=== PATIENT | female | born 1955 | race Caucasian/White ===

== ENCOUNTER 2017-08-04 12:55 | Emergency (ER) | payer MEDICARE, MEDICAID ==
[~2017-08-04] VITALS: Ht 165.1 cm; Wt 95.9 kg
[2017-08-04] MEDS ORDERED: dexamethasone sod phosphate 10mg/ml inj IV STA ×2 (13:08→15:36)
[2017-08-04] MEDS ORDERED: ketorolac tromethamine 15mg/ml inj. IV ONE (13:10)
[2017-08-04] MEDS ORDERED: normal saline 1000ML IV soln IVB ONE ×2 (13:10→14:35)
[2017-08-04] MEDS ORDERED: metoclopramide 5 mg/ml inj IV ONE (13:10)
[2017-08-04] MEDS ORDERED: SUMAtriptan succ. 6 MG/0.5ml vial SQ ONE ×2 (13:10→15:05)
[2017-08-04] MEDS ORDERED: ondansetron/PF 4mg/2ml inj IV ONE (14:35)
[2017-08-04] MEDS ORDERED: proCHLORperazine 10 MG/2 ml inj IV ONE (14:35)
[2017-08-04 14:49] LABS: BASOPHILS # (AUTO) 0.1 X10'3 (0-0.2); BASOPHILS % (AUTO) 0.6 % (0-1); EOSINOPHILS # (AUTO) 0.4 X10'3 (0-0.9); EOSINOPHILS % (AUTO) 2.6 % (0-6); HEMATOCRIT 41.5 % (35.0-45.0); HEMOGLOBIN 13.9 g/dl (12.0-16.0); LYMPHOCYTES # (AUTO) 3.2 X10'3 (1.1-4.8); MEAN CORPUSCULAR HEMOGLOBIN 26.7 PG (27.0-31.0); MEAN CORPUSCULAR HGB CONC 33.6 % (33.0-36.5); MEAN CORPUSCULAR VOLUME 79.5 FL (78-98); MEAN PLATELET VOLUME 8.5 FL (7.4-10.4); MONOCYTES # (AUTO) 0.9 X10'3 (0-0.9); MONOCYTES % (AUTO) 6.1 % (2-12); NEUTROPHILS # (AUTO) 10.5 X10'3 (1.8-7.7); NEUTROPHILS % (AUTO) 69.7 % (42-75); PLATELET COUNT 276 X10'3 (140-440); RED BLOOD COUNT 5.22 X10'6 (4.20-5.60); RED CELL DISTRIBUTION WIDTH 15.9 % (11.5-14.5)
[2017-08-04 14:58] LABS: INR 0.9 INR; PARTIAL THROMBOPLASTIN TIME 25 SECONDS (22-32); PROTHROMBIN TIME 9.8 SECONDS (9.0-12.0)
[2017-08-04 15:14] LABS: ALANINE AMINOTRANSFERASE 27 U/L (12-78); ALBUMIN 3.3 G/DL (3.4-5.0); ALBUMIN/GLOBULIN RATIO 0.9 (1.1-1.5); ALKALINE PHOSPHATASE 65 IU/L (46-116); ANION GAP 10 (8-16); ASPARTATE AMINO TRANSFERASE 14 U/L (10-37); BILIRUBIN,TOTAL 0.4 MG/DL (0.1-1.0); BLOOD UREA NITROGEN 28 MG/DL (7-18); BUN/CREATININE RATIO 23.9 (6.6-38.0); CALCIUM 8.9 MG/DL (8.5-10.1); CHLORIDE 102 MMOL/L (99-107); CREATININE 1.17 MG/DL (0.40-0.90); GLUCOSE 176 MG/DL (70-104); POTASSIUM 3.8 MMOL/L (3.5-5.1); SODIUM 140 MMOL/L (135-145); TOTAL CARBON DIOXIDE 28.5 MMOL/L (24-32); TOTAL PROTEIN 7.1 G/DL (6.4-8.2); eGFR 47 ML/MIN
[2017-08-04] MEDS ORDERED: diphenhydrAMINE 50 mg/ml inj IV ONE (15:40)
[2017-08-04 16:06] VITALS: BP 164/82
== END 2017-08-04 16:07 | disposition home or self-care (01) ==
LOC: ER 12:55
DX: R51 Headache (principal); R07.89 Other chest pain; M79.1 Myalgia; R50.9 Fever, unspecified; R11.2 Nausea with vomiting, unspecified; H53.8 Other visual disturbances; R09.89 Other specified symptoms and signs involving the circulatory and respiratory systems; G43.909 Migraine, unspecified, not intractable, without status migrainosus; I25.10 Atherosclerotic heart disease of native coronary artery without angina pectoris; E11.9 Type 2 diabetes mellitus without complications; I25.2 Old myocardial infarction; Z98.61 Coronary angioplasty status; Z90.710 Acquired absence of both cervix and uterus
CPT/HCPCS: 36415; 70450; 71045; 80053; 84484; 85025; 85610; 85651; 85730; 86140; 93005; 96361; 96372; 96374; 99285; J0780; J3030; J7030

== ENCOUNTER 2017-08-17 20:44 | Inpatient (IN) | payer MEDICARE, MEDICAID ==
[~2017-08-17] VITALS: Ht 165.1 cm; Wt 94.5 kg
[2017-08-17 21:46] LABS: BASOPHILS # (AUTO) 0.1 X10'3 (0-0.2); BASOPHILS % (AUTO) 0.8 % (0-1); EOSINOPHILS # (AUTO) 0.6 X10'3 (0-0.9); EOSINOPHILS % (AUTO) 5.3 % (0-6); HEMATOCRIT 38.8 % (35.0-45.0); HEMOGLOBIN 13.1 g/dl (12.0-16.0); LYMPHOCYTES # (AUTO) 2.9 X10'3 (1.1-4.8); MEAN CORPUSCULAR HEMOGLOBIN 26.7 PG (27.0-31.0); MEAN CORPUSCULAR HGB CONC 33.6 % (33.0-36.5); MEAN CORPUSCULAR VOLUME 79.3 FL (78-98); MEAN PLATELET VOLUME 7.9 FL (7.4-10.4); MONOCYTES # (AUTO) 0.6 X10'3 (0-0.9); MONOCYTES % (AUTO) 5.6 % (2-12); NEUTROPHILS # (AUTO) 6.9 X10'3 (1.8-7.7); NEUTROPHILS % (AUTO) 62.3 % (42-75); PLATELET COUNT 255 X10'3 (140-440); RED CELL DISTRIBUTION WIDTH 15.7 % (11.5-14.5); WHITE BLOOD COUNT 11.1 X10'3 (4.5-11.0)
[2017-08-17 21:58] LABS: PARTIAL THROMBOPLASTIN TIME 29 SECONDS (22-32); PROTHROMBIN TIME 9.9 SECONDS (9.0-12.0)
[2017-08-17 22:08] LABS: MAGNESIUM 1.9 MG/DL (1.5-2.4); PHOSPHORUS 4.8 MG/DL (2.3-4.5)
[2017-08-17] MEDS ORDERED: ATOR10TA70 PO (22:49)
[2017-08-17] MEDS ORDERED: LISI10TA4 PO (22:50)
[2017-08-17] MEDS ORDERED: UBID100C30 PO (22:52)
[2017-08-17] MEDS ORDERED: INSU100C4 SQ (22:55)
[2017-08-17] MEDS ORDERED: GABA-530 PO (22:55)
[2017-08-17] MEDS ORDERED: GABA-532 PO (22:55)
[2017-08-17] MEDS ORDERED: NAPR-996 PO (22:56)
[2017-08-17] MEDS ORDERED: ASPI81TA52 PO (22:58)
[2017-08-17] MEDS ORDERED: CHOL10002 PO (23:04)
[2017-08-17] MEDS ORDERED: CYAN100097 PO (23:04)
[2017-08-17] MEDS ORDERED: dextrose 50%-water 50ml dispensing syringe IV PRN ×2 (23:05)
[2017-08-17] MEDS ORDERED: magnesium 4gm in 100ml NS 100 ML IV PRN (23:05)
[2017-08-17] MEDS ORDERED: MESSAGE TO PHARMACY PO ONE (23:05)
[2017-08-17] MEDS ORDERED: potassium Cl 20 mEq SR tablet PO PRN ×2 (23:05)
[2017-08-17] MEDS ORDERED: heparin 10,000 units/1 ML INJ IV ONE (23:05)
[2017-08-17] MEDS ORDERED: magnesium hydroxide 30ml (MOM) UD suspension PO PRN (23:05)
[2017-08-17] MEDS ORDERED: magnesium 2GM in 50ml NS 50 ML IV PRN (23:05)
[2017-08-17] MEDS ORDERED: insulin Lispro (HumaLOG) vial - multi-dose SQ SCH (23:05)
[2017-08-17] MEDS ORDERED: mag hydrox/Alum hydrox/simeth 30ml oral suspension PO PRN (23:05)
[2017-08-17] MEDS ORDERED: acetaminophen 325mg tablet PO PRN (23:05)
[2017-08-17] MEDS ORDERED: morphine 4 MG/ML inj SYRINge IV PRN (23:05)
[2017-08-17] MEDS ORDERED: dextrose ORAL solution 15 GM/59 ML bottle PO PRN ×2 (23:05)
[2017-08-17] MEDS ORDERED: ondansetron/PF 4mg/2ml inj IV PRN (23:05)
[2017-08-17] MEDS ORDERED: heparin 10,000 units/1 ML INJ IV PRN (23:05)
[2017-08-17] MEDS ORDERED: potassium Cl 40MEQ/NS 500ml 500 ML IV PRN ×2 (23:05)
[2017-08-17] MEDS ORDERED: glucagon, human recombinant 1mg kit SUBCUT PRN (23:05)
[2017-08-17 23:38] LABS: HEMOGLOBIN A1C 6.7 % (4.5-6.2)
[2017-08-18] VITALS (19 sets, daily range): BP systolic 119–154; BP diastolic 46–82
[2017-08-18] MEDS: morphine 4 MG/ML inj SYRINge IV PRN ×3 (02:53→20:20)
[2017-08-18 04:23] LABS: BASOPHILS # (AUTO) 0.1 X10'3 (0-0.2); BASOPHILS % (AUTO) 1.2 % (0-1); EOSINOPHILS # (AUTO) 0.5 X10'3 (0-0.9); EOSINOPHILS % (AUTO) 4.1 % (0-6); HEMATOCRIT 39.8 % (35.0-45.0); LYMPHOCYTES # (AUTO) 2.2 X10'3 (1.1-4.8); LYMPHOCYTES % (AUTO) 18.4 % (21-51); MEAN CORPUSCULAR HEMOGLOBIN 25.8 PG (27.0-31.0); MEAN CORPUSCULAR HGB CONC 32.6 % (33.0-36.5); MEAN CORPUSCULAR VOLUME 79.2 FL (78-98); MEAN PLATELET VOLUME 9.3 FL (7.4-10.4); MONOCYTES # (AUTO) 0.6 X10'3 (0-0.9); MONOCYTES % (AUTO) 5.4 % (2-12); NEUTROPHILS # (AUTO) 8.3 X10'3 (1.8-7.7); NEUTROPHILS % (AUTO) 70.9 % (42-75); PLATELET COUNT 264 X10'3 (140-440); RED BLOOD COUNT 5.03 X10'6 (4.20-5.60); RED CELL DISTRIBUTION WIDTH 14.7 % (11.5-14.5); WHITE BLOOD COUNT 11.7 X10'3 (4.5-11.0)
[2017-08-18 04:24] LABS: CHLORIDE 101 MMOL/L (99-107)
[2017-08-18 04:48] LABS: ALANINE AMINOTRANSFERASE 24 U/L (12-78); ALBUMIN 3.4 G/DL (3.4-5.0); ALBUMIN/GLOBULIN RATIO 0.9 (1.1-1.5); ALKALINE PHOSPHATASE 70 IU/L (46-116); ANION GAP 9 (8-16); ASPARTATE AMINO TRANSFERASE 15 U/L (10-37); BILIRUBIN,TOTAL 0.5 MG/DL (0.1-1.0); BLOOD UREA NITROGEN 25 MG/DL (7-18); BUN/CREATININE RATIO 27.5 (6.6-38.0); CALCIUM 8.7 MG/DL (8.5-10.1); CHOL/HDL RATIO 2.5 (0.00-4.99); CHOLESTEROL 146 MG/DL (0-200); CREATININE 0.91 MG/DL (0.40-0.90); GLUCOSE 68 MG/DL (70-104); HDL CHOLESTEROL 59 MG/DL (35-60); LDL CHOLESTEROL 69 MG/DL (50-100); SODIUM 138 MMOL/L (135-145); TOTAL CARBON DIOXIDE 27.8 MMOL/L (24-32); TOTAL PROTEIN 7.3 G/DL (6.4-8.2); TRIGLYCERIDES 72 MG/DL (20-135); eGFR 62 ML/MIN
[2017-08-18 04:59] LABS: MAGNESIUM 1.9 MG/DL (1.5-2.4)
[2017-08-18] MEDS ORDERED: dextrose 5%-1/2 normal saline 1,000 ML IV SCH (05:10)
[2017-08-18] MEDS ORDERED: nitroGLYCERIN-Tridil 50MG/D5W 250 ML IV ONE (07:41)
[2017-08-18] MEDS ORDERED: iohexol 350MG/ML 100ml bottle IV ONE (07:42)
[2017-08-18] MEDS ORDERED: heparin 1,000unit/ml 10ml vial 10 ML ONE (07:42)
[2017-08-18] MEDS ORDERED: LIDOcaine 1%/PF (10mg/ml) 5ml vial ONE (07:42)
[2017-08-18] MEDS ORDERED: iohexol 350 MG/ML 50ML vial IV ONE ×2 (07:42→09:14)
[2017-08-18] MEDS: aspirin 81mg tablet.DR PO SCH (07:54)
[2017-08-18] MEDS: vitamin D (cholecalciferol) 1,000 unit tablet PO SCH (07:54)
[2017-08-18] MEDS: cyanocobalamin 500mcg tablet PO SCH (07:54)
[2017-08-18] MEDS: gabapentin 100mg capsule PO SCH ×3 (07:54→17:53)
[2017-08-18] MEDS: atorvastatin 10mg tablet PO SCH (07:55)
[2017-08-18] MEDS: K and/or MAG REPLACEMENT MC SCH (07:56)
[2017-08-18] MEDS: lisinopril 10 MG tablet PO SCH ×2 (07:56→10:07)
[2017-08-18] MEDS ORDERED: UBIDECARENONE 300 MG PO SCH (08:00)
[2017-08-18] MEDS ORDERED: fentaNYL/PF 50MCG/1 ML 2ML syringe ONE (08:47)
[2017-08-18] MEDS ORDERED: midazolam 2 mg/2 ml injection ONE (08:47)
[2017-08-18 09:30] LABS: ISTAT HGB ART 12.9 g/dl (12.0-16.0); ISTAT Hct ART 38 %PCV (35-48); ISTAT O2 SATURATION ARTERIAL 96 % (95-98); ISTAT SOURCE ART
[2017-08-18] MEDS ORDERED: normal saline 1000ml 1,000 ML IV ONE (10:35)
[2017-08-18] MEDS ORDERED: normal saline 1000ml 1,000 ML IV SCH (10:35)
[2017-08-18 11:51] LABS: ISTAT Hct MIX 38 %PCV (35-48); ISTAT O2 SATURATION MIX VENOUS 69 % (60-80); ISTAT SOURCE MIX
[2017-08-18] MEDS ORDERED: OMEP20TA23 PO (12:55)
[2017-08-18] MEDS ORDERED: ISOS30TA6 PO (12:55)
[2017-08-18] MEDS ORDERED: CARV3.12 PO (12:55)
[2017-08-18] MEDS ORDERED: insulin glargine (Lantus) pen - multi-dose SQ SCH (21:00)
[2017-08-18] MEDS ORDERED: gabapentin 300mg capsule PO SCH (21:00)
[2017-08-19] MEDS: morphine 4 MG/ML inj SYRINge IV PRN ×3 (01:41→11:24)
[2017-08-19 03:00] VITALS: BP 136/49
[2017-08-19 05:51] LABS: BASOPHILS % (AUTO) 0.3 % (0-1); EOSINOPHILS # (AUTO) 0.5 X10'3 (0-0.9); EOSINOPHILS % (AUTO) 4.3 % (0-6); HEMATOCRIT 36.1 % (35.0-45.0); HEMOGLOBIN 12.3 g/dl (12.0-16.0); LYMPHOCYTES # (AUTO) 2.8 X10'3 (1.1-4.8); LYMPHOCYTES % (AUTO) 22.9 % (21-51); MEAN CORPUSCULAR HEMOGLOBIN 27.1 PG (27.0-31.0); MEAN CORPUSCULAR VOLUME 79.8 FL (78-98); MEAN PLATELET VOLUME 8.7 FL (7.4-10.4); MONOCYTES # (AUTO) 0.9 X10'3 (0-0.9); MONOCYTES % (AUTO) 7.4 % (2-12); NEUTROPHILS # (AUTO) 7.9 X10'3 (1.8-7.7); NEUTROPHILS % (AUTO) 65.1 % (42-75); PLATELET COUNT 244 X10'3 (140-440); RED BLOOD COUNT 4.53 X10'6 (4.20-5.60); RED CELL DISTRIBUTION WIDTH 15.8 % (11.5-14.5); WHITE BLOOD COUNT 12.1 X10'3 (4.5-11.0)
[2017-08-19 06:00] VITALS: BP 136/53
[2017-08-19 06:12] LABS: ALANINE AMINOTRANSFERASE 23 U/L (12-78); ALBUMIN 3.1 G/DL (3.4-5.0); ALBUMIN/GLOBULIN RATIO 0.9 (1.1-1.5); ALKALINE PHOSPHATASE 67 IU/L (46-116); ANION GAP 10 (8-16); ASPARTATE AMINO TRANSFERASE 12 U/L (10-37); BILIRUBIN,TOTAL 0.5 MG/DL (0.1-1.0); BLOOD UREA NITROGEN 18 MG/DL (7-18); BUN/CREATININE RATIO 19.1 (6.6-38.0); CHLORIDE 103 MMOL/L (99-107); CREATININE 0.94 MG/DL (0.40-0.90); GLUCOSE 105 MG/DL (70-104); MAGNESIUM 1.8 MG/DL (1.5-2.4); SODIUM 142 MMOL/L (135-145); TOTAL CARBON DIOXIDE 28.9 MMOL/L (24-32); TOTAL PROTEIN 6.7 G/DL (6.4-8.2); eGFR 60 ML/MIN
[2017-08-19] MEDS: vitamin D (cholecalciferol) 1,000 unit tablet PO SCH (07:28)
[2017-08-19] MEDS: lisinopril 10 MG tablet PO SCH (07:29)
[2017-08-19] MEDS: atorvastatin 10mg tablet PO SCH (07:29)
[2017-08-19] MEDS: aspirin 81mg tablet.DR PO SCH (07:30)
[2017-08-19] MEDS: cyanocobalamin 500mcg tablet PO SCH (07:30)
[2017-08-19] MEDS: gabapentin 100mg capsule PO SCH (07:31)
[2017-08-19] MEDS: K and/or MAG REPLACEMENT MC SCH (08:00)
[2017-08-19 11:00] VITALS: BP 143/40
== END 2017-08-19 12:15 | disposition home or self-care (01) | DRG 287 ==
LOC: ER 20:44 → ED HOLD 23:02 → EDBEDREQ 08-18 00:16 → PCU 3S 08-18 00:30
PROVIDERS: ADMIT Family Medicine; ATTEND Internal Medicine
PROC: 4A023N8 Measurement of Cardiac Sampling and Pressure, Bilateral, Percutaneous Approach (ICD-10-PCS; principal; 2017-08-18)
PROC: B2111ZZ Fluoroscopy of Multiple Coronary Arteries using Low Osmolar Contrast (ICD-10-PCS; 2017-08-18)
PROC: B2151ZZ Fluoroscopy of Left Heart using Low Osmolar Contrast (ICD-10-PCS; 2017-08-18)
PROC: B2131ZZ Fluoroscopy of Multiple Coronary Artery Bypass Grafts using Low Osmolar Contrast (ICD-10-PCS; 2017-08-18)
DX: T82.855A Stenosis of coronary artery stent, initial encounter (principal); I25.82 Chronic total occlusion of coronary artery; G35 Multiple sclerosis; E10.9 Type 1 diabetes mellitus without complications; M94.0 Chondrocostal junction syndrome [Tietze]; I10 Essential (primary) hypertension; I25.10 Atherosclerotic heart disease of native coronary artery without angina pectoris; E78.00 Pure hypercholesterolemia, unspecified; E78.5 Hyperlipidemia, unspecified; G43.909 Migraine, unspecified, not intractable, without status migrainosus; G47.33 Obstructive sleep apnea (adult) (pediatric); G89.4 Chronic pain syndrome; I25.2 Old myocardial infarction; M19.90 Unspecified osteoarthritis, unspecified site; Y83.1 Surgical operation with implant of artificial internal device as the cause of abnormal reaction of the patient, or of later complication, without mention of misadventure at the time of the procedure; Z96.41 Presence of insulin pump (external) (internal); Z95.1 Presence of aortocoronary bypass graft; Z90.710 Acquired absence of both cervix and uterus; Z88.1 Allergy status to other antibiotic agents; Z79.899 Other long term (current) drug therapy; Z79.82 Long term (current) use of aspirin; Z87.891 Personal history of nicotine dependence; Z80.3 Family history of malignant neoplasm of breast; Z80.6 Family history of leukemia; Z82.0 Family history of epilepsy and other diseases of the nervous system
CPT/HCPCS: 36415; 71045; 80053; 80061; 82803; 82948; 83036; 83735; 83880; 84100; 84484; 85014; 85025; 85347; 85610; 85730; 87070; 93005; 93461; 99152; 99153; A6251; A6257; C1760; C1769; C1894; J1644; J1815; J2001; J2250; J2270; J3010; J3490; J7030; Q9967

== ENCOUNTER 2024-10-18 13:29 | Inpatient (IN) | payer MEDICARE, MEDICAID ==
[~2024-10-18] VITALS: Ht 162.6 cm; Wt 98.8 kg
[~2024-10-18 13:29] MED LIST: ASPI81TA52 PO; ATOR10TA70 PO; CARV3.12 PO; CHOL10002 PO; CYAN-36 PO; GABA-530 PO; GABA-532 PO; LISI10TA27 PO; OMEP20TA23 PO; UBID100C7 PO
--- NOTE | 2024-10-18 14:29 | ELECTROCARDIOGRAPH REPORT ---
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
--- NOTE | 2024-10-18 14:35 | RADIOLOGY REPORT ---
CHEST RADIOGRAPH Indication: CP Technique: Single frontal view of the chest was obtained COMPARISON: None FINDINGS: Lines and Tubes: Median sternotomy Lungs: Clear Pleura: No effusion. No pneumothorax. Cardiomediastinal contours: Unremarkable Bones: Unremarkable IMPRESSION: No acute disease.
[2024-10-18 14:46] LABS: BASOPHILS # (AUTO) 0.1 X10'3 (0-0.2); BASOPHILS % (AUTO) 0.9 % (0-1); EOSINOPHILS # (AUTO) 0.5 X10'3 (0-0.9); EOSINOPHILS % (AUTO) 4.1 % (0-6); HEMATOCRIT 38.7 % (35.0-45.0); HEMOGLOBIN 12.6 g/dl (12.0-16.0); LYMPHOCYTES % (AUTO) 25.6 % (21-51); MEAN CORPUSCULAR HEMOGLOBIN 25.8 PG (27.0-31.0); MEAN CORPUSCULAR HGB CONC 32.5 g/dL (33.0-36.5); MEAN CORPUSCULAR VOLUME 79.4 FL (78-98); MEAN PLATELET VOLUME 8.9 FL (7.4-10.4); MONOCYTES # (AUTO) 0.7 X10'3 (0-0.9); MONOCYTES % (AUTO) 5.7 % (2-12); NEUTROPHILS # (AUTO) 7.5 X10'3 (1.8-7.7); NEUTROPHILS % (AUTO) 63.7 % (42-75); PLATELET COUNT 258 X10'3 (140-440); RED BLOOD COUNT 4.88 X10'6 (4.20-5.60); RED CELL DISTRIBUTION WIDTH 16.3 % (11.5-14.5); WHITE BLOOD COUNT 11.7 X10'3 (4.5-11.0)
[2024-10-18 15:00] LABS: ALBUMIN 3.2 G/DL (3.4-5.0); ANION GAP 11 (8-16); BLOOD UREA NITROGEN 17 MG/DL (7-18); BUN/CREATININE RATIO 15.9 (10.0-20.0); CALCIUM 8.8 MG/DL (8.5-10.1); CHLORIDE 105 MMOL/L (99-107); CREATININE 1.07 MG/DL (0.40-0.90); GLUCOSE 124 MG/DL (70-104); POTASSIUM 3.9 MMOL/L (3.5-5.1); PRO BRAIN NATRIURETIC PEPTIDE 410 PG/ML (0-125); SODIUM 145 MMOL/L (135-145); TOTAL CARBON DIOXIDE 28.7 MMOL/L (24-32); eCRCL 42 ML/MIN; eGFR 51 ML/MIN
--- NOTE | 2024-10-18 19:00 | Physician Documentation ---
History of Present Illness ~ Chief Complaint: Shortness of Breath Stated Complaint: SOB AND CP DOC REFFERED FOR ADMIT Time Seen by MD: 18:06 Primary Medical Doctor: NICK GREENE Source: patient Mode of Arrival: POV Exam Limitations: no limitations HPI Patient in with worsening shortness of breath and had 2 syncopal episodes last week. History of known aortic stenosis. She states her last echocardiogram was done at [facility] last week that showed worsening since prior. She reports that it is moderate stenosis. This was a history of type 1 diabetes, 1 myocardial infa rction, two-vessel bypass and 3 cardiac stents. She has had very mild chest pressure over the last couple of days. It comes and goes. It is anterior. Nonradiating. No nausea or diaphoresis. States that she has been speaking with her dining room captain about aortic valve replacement. He is out of the country for the next couple of weeks. She would like admission to determine if she can get the replacement now. Her primary care provider has recommended that she not walk due to her high risk of syncopal episodes at this point. Very remote history of smoking. No drugs or alcohol. Medication Reconciliation Allergies: Coded Allergies: levofloxacin (Verified Allergy, Unknown, 08/17/17) Scheduled Aspirin (Aspirin EC), 1 TABLET PO DAILY, (Reported) Atorvastatin Calcium (Atorvastatin Calcium), 1 TAB PO DAILY, (Reported) Carvedilol (Coreg), 1 TAB PO Q12H Cholecalciferol (Vitamin D3) (Vitamin D3), 5 TAB PO DAILY, (Reported) Clopidogrel Bisulfate (Clopidogrel), 1 TAB PO DAILY, (Reported) Cyanocobalamin (Vitamin B-12) (B-12), 2.5 TAB PO DAILY, (Reported) Duloxetine HCl (Duloxetine HCl), 2 CAP PO DAILY, (Reported) Furosemide (Furosemide), 1 TAB PO DAILY, (Reported) Gabapentin (Gabapentin), 1 CAP PO CC, (Reported) Gabapentin (Gabapentin), 1 CAP PO HS, (Reported) Levothyroxine Sodium (Levothyroxine Sodium), 1 TAB PO DAILY, (Reported) Lisinopril (Lisinopril), 0.5 TAB PO DAILY, (Reported) Omeprazole Magnesium (Prilosec Otc), 20 MG PO DAILY Potassium Chloride (Potassium Chloride), 1 TAB PO BID, (Reported) Ubidecarenone (Co Q10), 300 MG PO DAILY, (Reported) Past Medical History Past Medical History: Migraine, Multiple Sclerosis, Coronary Artery Disease, High Cholesterol, Hypertension, Myocardial Infarction, Diabetes Past Surgical History: coronary bypass surgery, hysterectomy, orthopedic surgeries Patient History: Cardiac pacemaker MOTHER FH: Parkinson's disease FATHER FH: breast cancer MOTHER FH: leukemia FATHER Smoking Status: Former smoker Alcohol Use: None Drug Use: none Lives In: Home Occupation: retired Review of Systems All Other Systems at this time: Reviewed and Negative Physical Exam Vital Signs: Temperature: 97.9, Source: Temporal, Heart Rate: 67, Respiratory Rate: 18, BP: 137/52, Pulse Oximetry: 98, Weight: 98.800 Physical Exam General: Alert and oriented x4, well-appearing, well-nourished, no acute distress HEENT: Normocephalic, atraumatic, no visible or palpable masses or depression, extraocular movements intact, PERRLA, no scleral icterus, neck is supple and nontender, mucous membranes moist Heart: Regular rate and rhythm, systolic murmur Lungs: Clear to auscultation bilaterally, normal work of breathing Abdomen: Soft, nontender, no palpable masses, normal bowel sounds Back: Spine is without deformity or tenderness, no CVA tenderness Extremities: Full range of motion, no acute deformity, peripheral pulses intact, no cyanosis or edema Musculoskeletal: Normal gait, normal tone Neurologic: Cranial nerves 2-12 are intact, reflexes normal Psychiatric: Alert and oriented x4, judgment and insight normal, normal mood and affect Skin: Good turgor, no rashes Progress Results/Orders Results/Orders Orders - JERMAINE SAUCEDO MD Hospitalist (10/18/24 ) Vital Signs 10/18/24 10/18/24 10/18/24 10/18/24 13:48 15:07 15:32 18:12 Temp 97.9 Pulse 78 62 67 Resp 18 16 17 18 B/P (MAP) 136/91 137/68 (91) 137/52 (80) Pulse Ox 98 98 98 Laboratory Tests Test 10/18/24 13:36 10/18/24 16:21 10/18/24 18:18 White Blood Count 11.7 H Red Blood Count 4.88 Hemoglobin 12.6 Hematocrit 38.7 Mean Corpuscular Volume 79.4 Mean Corpuscular Hemoglobin 25.8 L Mean Corpuscular Hemoglobin Concent 32.5 L Red Cell Distribution Width 16.3 H Platelet Count 258 Mean Platelet Volume 8.9 Neutrophils (%) (Auto) 63.7 Lymphocytes (%) (Auto) 25.6 Monocytes (%) (Auto) 5.7 Eosinophils (%) (Auto) 4.1 Basophils (%) (Auto) 0.9 Neutrophils # (Auto) 7.5 Lymphocytes # (Auto) 3.0 Monocytes # (Auto) 0.7 Eosinophils # (Auto) 0.5 Basophils # (Auto) 0.1 CBC Comment Sodium Level 145 Potassium Level 3.9 Chloride Level 105 Carbon Dioxide Level 28.7 Anion Gap 11 Blood Urea Nitrogen 17 Creatinine 1.07 H Estimated GFR/1.73 m2 51 BUN/Creatinine Ratio 15.9 Glucose Level 124 H Hemoglobin A1c 6.8 H Calcium Level 8.8 Troponin I High Sensitivity 21 21 Pro-B-Type Natriuretic Peptide 410 H Albumin 3.2 L Chemistry Comments Troponin I High Sens Percent Delta 0 Troponin I Hi Sens Absolute Change 0 Urine Specimen Description Cln catch midstream Urine Color Yellow Urine Clarity Clear Urine pH 6.0 Urine Specific [place] 1.025 Urine Protein Trace Urine Glucose (UA) Negative Urine Ketones Negative Urine Occult Blood Negative Urine Nitrite Negative Urine Bilirubin Negative Urine Urobilinogen 0.2 Urine Leukocyte Esterase Negative Urine RBC 0-2 Urine WBC 0-4 Urine Squamous Epithelial Cells Moderate Urine Bacteria Few Urine Mucus Few Urine Culture Indicated Not ind Volume Urine Centrifuged 10 ml Urine Comment Medical Decision Making Additional Infomation Differential includes but is not limited to: Aortic stenosis, dehydration, electrolyte derangement, pulmonary embolus, myocardial infarction, pneumonia, p neumothorax Departure Admitted to Inpatient Unit: yes, to hospitalist Admission Level of Care: Med/Surg with Tele Impression: Primary Impression: Aortic stenosis Qualified Codes: I35.0 - Nonrheumatic aortic (valve) stenosis Additional Impression: Syncope Qualified Codes: R55 - Syncope and collapse Additional Impression Text EKG: Sinus rhythm, rate of 86, no ST changes, QTC 548 Patient with known history of aortic stenosis and syncopal episodes last week. Workup initially unremarkable including normal CBC, chemistry panel and troponin is negative x2. No significant findings chest x-ray. Chest x-ray and EKG independently reviewed by me. Discussed with the hospitalist team who will admit for further evaluation and treatment. Patient is stable on admission. Condition: Stable Referrals: NO PRIMARY CARE PROVIDER (PCP) Signature Scribe Signature: No scribe Attestation: No scribe JERMAINE SAUCEDO MD Oct 18, 2024 19:00
[2024-10-18] MEDS ORDERED: CLOP75TA34 PO (20:02)
[2024-10-18] MEDS ORDERED: DULO60CA65 PO (20:03)
[2024-10-18] MEDS ORDERED: FURO40TA4 PO (20:03)
[2024-10-18] MEDS ORDERED: LEVO75TA7 PO (20:04)
[2024-10-18] MEDS ORDERED: POTA-366 PO (20:04)
[2024-10-18] MEDS ORDERED: magnesium sulf-water 2g/50mL 50 ML IV PRN (20:15)
[2024-10-18] MEDS ORDERED: magnesium Cl slow-release 64mg tablet PO PRN (20:15)
[2024-10-18] MEDS ORDERED: magnesium hydroxide 30ml (MOM) UD suspension PO PRN (20:15)
[2024-10-18] MEDS ORDERED: acetaminophen 325mg tablet PO PRN (20:15)
[2024-10-18] MEDS ORDERED: mag hydrox/Alum hydrox/simeth 30ml oral suspension PO PRN (20:15)
[2024-10-18] MEDS ORDERED: potassium Cl 40MEQ/1/2NS 520ml 520 ML IV PRN (20:15)
[2024-10-18] MEDS ORDERED: potassium Cl 20 mEq SR tablet PO PRN (20:15)
[2024-10-18] MEDS ORDERED: morphine 2 MG/ML inj. syringe IV PRN ×2 (20:15)
[2024-10-18] MEDS ORDERED: ondansetron/PF 4mg/2ml inj IV PRN (20:15)
[2024-10-18] MEDS ORDERED: magnesium sulf-water 4G/100mL 100 ML IV PRN (20:15)
[2024-10-18] MEDS: PERFLUTREN PROTEIN-A MICROSPHR (Optison) 0.22 MG/ML 3ML VIAL IV ONE (20:24)
--- NOTE | 2024-10-18 20:24 | HISTORY AND PHYSICAL-Residence ---
History & Physical Providers to CC Resident Creating Document: DEVENDRA SWEET, VITOR ~ History of Present Illness Primary Medical Doctor: Dr. Terrazas,- soledad león, [facility] Reason for Admit\Complaint: Angina, syncope, dyspnea History of Present Illness 89 ruled female with past medical history of moderate aortic stenosis, type 1 diabetes mellitus, coronary artery disease status post three stents & two vessel bypass, COPD, hypertension, TIA varicose, peripheral neuropathy presented to the ER with a chief complaints syncope, shortness of breath, chest pain. She endorses that her echocardiogram done at [facility] last week while admitted for TIA showed worsening of the aortic stenosis . She do reports chest pain in the form of chest pressure with a retrosternal area, 4-5/10, multiple episodes, on and off, nonradiating aggravated with exertion and relieved with rest & not associated with nausea, diaphoresis, palpitations. She complained of shortness of breathe, more from last week, class three NYHA, aggravated with walking for 50 ft distance and are not associated with orthopnea and PND. She reports two syncopal episodes in the form of block out in a month. She endorses that she has been speaking with her adapted physical education teacher, Dr. Julio Cesar busby for possible aortic valve replacement but he is out of town and she consulted her primary care provider recommended her to visit ER as PCP thinks that it is not safe for her to be in home without any help. She reports that she lost her vision in left eye while she was undergoing cervical neck fusion surgery. She denied fever, cough, wheeze, abdominal pain, abdominal distention, swelling of legs, decreased urine output, bleeding manifestations, rash, headache, vertigo, weakness of limbs, slurring of speech, deviation of angle of mouth, seizure, drooping of eyelids. Discussed code status with the patient & the patient wants to be full code Allergies: Coded Allergies: levofloxacin (Verified Allergy, Unknown, 08/17/17) Home Medications Home Medications Active Prilosec Otc (Omeprazole Magnesium) 20 Mg Tablet.dr 20 Mg PO DAILY Coreg (Carvedilol) 3.125 Mg Tablet 1 Tab PO Q12H 30 Days Hold if systolic blood pressure less than 100 or heart rate less than 60 Reported Potassium Chloride 20 Meq Tablet.er 1 Tab PO BID Levothyroxine Sodium 75 Mcg Tablet 1 Tab PO DAILY Furosemide 40 Mg Tablet 1 Tab PO DAILY Duloxetine HCl 60 Mg Capsule. 2 Cap PO DAILY Clopidogrel (Clopidogrel Bisulfate) 75 Mg Tablet 1 Tab PO DAILY Vitamin D3 (Cholecalciferol (Vitamin D3)) 1,000 Unit Tablet 5 Tab PO DAILY B-12 (Cyanocobalamin (Vitamin B-12)) 1,000 Mcg Tablet 2.5 Tab PO DAILY Aspirin EC (Aspirin) 81 Mg Tablet.dr 1 Tablet PO DAILY Gabapentin 300 Mg Capsule 1 Cap PO HS Gabapentin 100 Mg Capsule 1 Cap PO CC Co Q10 (Ubidecarenone) 100 Mg Capsule 300 Mg PO DAILY Lisinopril 10 Mg Tablet 0.5 Tab PO DAILY hold if Systolic blood pressure less than 100 Atorvastatin Calcium 10 Mg Tablet 1 Tab PO DAILY Past Medical History Past Medical History Moderate Aortic stenosis Multiple episodes of syncope Type 1 diabetes mellitus CAD status post three stents and two vessel bypass in 2000(adapted physical education teacher: Dr. Julio Cesar Busby) COPD Hypertension Hyperlipidemia Hypothyroidism TIA Varicose veins (following Dr. Rivero) Peripheral neuropathy Hyponatremia history Migraine, Multiple Sclerosis Past Surgical History Surgical History Comment Two vessel bypass in 2000 Neck fusion in 2020 Surgeries for three trigger fingers Appendectomy Tonsillectomy Hysterectomy L4-L5 back surgery(disc related) Left titanium implant in femur for femur fracture Right intra-ocular lens for cataract Family History Family History: Cardiac pacemaker MOTHER FH: Parkinson's disease FATHER FH: breast cancer MOTHER FH: leukemia FATHER Past Social History Social History Comment She is living in [facility] apartment on with the support of [facility] walker for couple of hours in a day. Smoking: Non-Smoker Alcohol Use: None Drug Use: None Lives with: Alone Lives In: Home Occupation: retired ROS All Other Systems: Reviewed and Negative ROS Reviewed in full and negative except for positive pertinent as in the HPI Exam Vitals: Vital Signs Date Time Temp Pulse Resp B/P (MAP) Pulse Ox O2 Delivery O2 Flow Rate FiO2 10/18/24 18:12 67 18 137/52 (80) 98 10/18/24 13:48 97.9 General: General: Alert and oriented x4, well-appearing, well-nourished, no acute distress HEENT: Normocephalic, atraumatic, no visible or palpable masses or depression, extraocular movements intact, PERRLA, no scleral icterus, neck is supple and nontender, mucous membranes moist Cardiovascular: Regular rate and rhythm, heard 1st heart sound 2nd heart sound. Tran systolic murmur of grade 3/6 in mitral area, nonradiating to axilla(gallaverdin phenomena). Ejection systolic murmur of grade 3/6 in aortic area & pulmonary area, radiating to carotid. Respiratory system: Clear to auscultation bilaterally, normal work of breathing Gastrointestinal system:: Soft, nontender, no palpable masses, normal bowel sounds Back: Spine is without deformity or tenderness, no CVA tenderness Extremities: Full range of motion, no acute deformity, peripheral pulses intact, no cyanosis or edema Musculoskeletal: Normal gait, normal tone Neurologic: No focal neurological deficits. Cranial nerves 2-12 are intact, reflexes normal Psychiatric: Alert and oriented x4, judgment and insight normal, normal mood and affect Skin: Good turgor, no rashes Diagnostic Data Last Recorded Lab Results: 10/19/2425510/19/246 Advance Care Planning Advanced Care planning: Add on additional 30 min Additional Plan Syncope likely secondary to Aortic stenosis Heart rate is normal. Blood pressure is initially as high as 160s & trended down to 120 EKG- no segment elevation Troponins are normal ProBNP is elevated mildly 410 Ordered echocardiogram Consult lockstitch front edge tape sewer adapted physical education teacher(as her adapted physical education teacher Dr. julio cesar busby is out of town) in the a.m. for TAVR evaluation Ordered CT head &carotid Doppler Patient is with tried of classic aortic stenosis symptoms-angina, syncope, dyspnea, very active symptoms and may need evaluation for TAVR. On metoprolol 25 mg and 0.4 mg sublingual nitroglycerin PRN for chest pain. Type 1 diabetes mellitus A1c 6.8 Blood glucose is 124, 83 On CGM & insulin pump Had a long discussion with the patient about starting the hospital insulin protocol and her home insulin pump needs to be hold but patient denied the in- hospital insulin protocol and she wants to continue the insulin pump despite we clearly explained her about possible consequences. EUGENE likely secondary to renal tubular stasis Serum creatinine is mildly elevated and we will continue to monitor CMP CAD status post stenting and CABG We are continuing home medications of aspirin 81 mg, clopidogrel 75 mg, rosuvastatin 40 mg Hypothyroidism TSH 6.15. Continue levothyroxine 75 mcg COPD Not in acute exacerbation Hypertension Continuing home medications of Lasix 40 mg p.o. daily, lisinopril 5 mg Blood trended down to 120s from 160. Hyperlipidemia Ordered lipid panel and follow up with the results On rosuvastatin 40 mg p.o. daily Varicose veins in the leg Outpatient follow up with Dr. Rivero Peripheral neuropathy Continuing home medications of Pregabalin 50 mg p.o. daily , duloxetine 120, On centrum 15 mL p.o. daily Code status: Full code Diet: Heart healthy diet DVT prophylaxis: Heparin PT: Ordered Prognosis: Guarded Devendra Sweet IM resident. Date of Service: Oct 18, 2024 Billing Provider: BHARGAV TUTTLE MD Common Visit Codes: 54056-OGSRISO INP/OBS CARE (HIGH) Assessment/Plan Assessment Evaluated the patient with the residents. Discussed the case with them. Reviewed notes by Dr.Suragani TILLMAN. I agree with his assessments and plans. I also reviewed the patient's records myself. Continue present care with no additional points DEVENDRA SWEET, VITOR Oct 18, 2024 20:24 BHARGAV TUTTLE MD Oct 19, 2024 11:22
[2024-10-18 20:25] LABS: BILIRUBIN,URINE NEGATIVE (Neg); CLARITY,URINE CLEAR (Clear); COLOR,URINE YELLOW (Yellow); GLUCOSE, URINE NEGATIVE (Neg); KETONES,URINE NEGATIVE (Neg); LEUKOCYTE ESTERASE ,URINE NEGATIVE (Neg); NITRITES, URINE NEGATIVE (Neg); OCCULT BLOOD,URINE NEGATIVE (Neg); PROTEIN,URINE TRACE mg/dl (Neg); UROBILINOGEN,URINE 0.2 E.U/dL (0.2-1.0)
[2024-10-18 20:30] LABS: UA COLLECTION TYPE CLN CATCH MIDSTREAM
[2024-10-18 20:33] LABS: BACTERIA,URINE FEW /HPF (Neg); MUCUS STRANDS FEW /LPF (Neg); RBC,URINE 0-2 /HPF (0-2); SQUAMOUS EPITHELIAL CELL,UR MODERATE /LPF (FEW); WBC,URINE 0-4 /HPF (0-4)
[2024-10-18 20:43] LABS: APTT 29 SECONDS (22-32); PROTHROMBIN TIME 10.6 SECONDS (9.0-12.0)
[2024-10-18 20:50] LABS: HEMOGLOBIN A1C 6.8 % (4.5-6.2)
[2024-10-18 20:59] LABS: THYROID STIMULATING HORMONE 6.15 ulU/ml (0.34-4.50)
[2024-10-18] MEDS: furosemide 40mg tablet PO SCH (21:24)
[2024-10-18] MEDS: aspirin 81mg, enteric-coated 1 TAB TABLET.DR PO SCH (21:25)
[2024-10-19] MEDS ORDERED: ROSU40TA89 PO (00:35)
[2024-10-19] MEDS ORDERED: PREG50CA65 PO (00:35)
[2024-10-19] MEDS ORDERED: nitroGLYCERIN 0.4mg SUBLingual tab SL PRN (01:40)
[2024-10-19] MEDS: heparin, porcine 5000 units/ml vial SQ SCH (01:41)
[2024-10-19] MEDS ORDERED: CAND16TA29 PO (02:38)
--- NOTE | 2024-10-19 02:42 | RADIOLOGY REPORT ---
EXAM: CT CT HEAD INDICATION: Syncope TECHNIQUE: CT of the head without intravenous contrast. Radiation Dose : 1. Head: CT Dose: CTDI volume is mGy. Dose-length product is mGy*cm The dose indicators for CT are the volume Computed Tomography (CT) Dose Index (CTDIvol) and the Dose Length Product (DLP), and are measured in units of mGy and mGy-cm, respectively. These indicators are not patient dose, but values generated from the CT scanner acquisition factors. The report includes radiation exposure data for exposures received during this examination. COMPARISON: None FINDINGS: There is no evidence of acute intracranial hemorrhage, extra-axial collection, mass effect, midline s hift, herniation or hydrocephalus. Bilateral basal ganglia calcifications. The ventricles, sulci and cisterns are age appropriate. The rob-white differentiation is intact. Moderate diffuse confluent periventricular and subcortical white matter hypoattenuation is nonspecifi c but may be related to small vessel ischemic disease. The visualized paranasal sinuses and mastoid air cells are clear. The surrounding soft tissues and osseous structures are unremarkable. Hyperostosis frontalis interna. IMPRESSION: 1. No acute intracranial abnormality. 2. Chronic sequelae of microvascular disease. Radiation optimization: All CT scans at this facility use at least one of these dose optimization minna hniques: automated exposure control mA and/or kV adjustment per patient size (includes targeted exam s where dose is matched to clinical indication) or iterative reconstruction.
[2024-10-19 03:12] LABS: BASOPHILS # (AUTO) 0.1 X10'3 (0-0.2); BASOPHILS % (AUTO) 0.9 % (0-1); EOSINOPHILS # (AUTO) 0.5 X10'3 (0-0.9); EOSINOPHILS % (AUTO) 4.8 % (0-6); HEMATOCRIT 36.3 % (35.0-45.0); HEMOGLOBIN 11.9 g/dl (12.0-16.0); LYMPHOCYTES # (AUTO) 3.2 X10'3 (1.1-4.8); LYMPHOCYTES % (AUTO) 30.5 % (21-51); MEAN CORPUSCULAR HEMOGLOBIN 26.1 PG (27.0-31.0); MEAN CORPUSCULAR HGB CONC 32.9 g/dL (33.0-36.5); MEAN CORPUSCULAR VOLUME 79.4 FL (78-98); MONOCYTES # (AUTO) 0.7 X10'3 (0-0.9); MONOCYTES % (AUTO) 7.1 % (2-12); NEUTROPHILS # (AUTO) 5.9 X10'3 (1.8-7.7); NEUTROPHILS % (AUTO) 56.7 % (42-75); PLATELET COUNT 225 X10'3 (140-440); RED BLOOD COUNT 4.58 X10'6 (4.20-5.60); WHITE BLOOD COUNT 10.4 X10'3 (4.5-11.0)
[2024-10-19 03:27] LABS: ALANINE AMINOTRANSFERASE 19 U/L (12-78); ALBUMIN/GLOBULIN RATIO 0.8 (1.1-1.5); ALKALINE PHOSPHATASE 68 IU/L (46-116); ANION GAP 9 (8-16); ASPARTATE AMINO TRANSFERASE 18 U/L (10-37); BILIRUBIN,TOTAL 0.4 MG/DL (0.1-1.0); BLOOD UREA NITROGEN 19 MG/DL (7-18); BUN/CREATININE RATIO 17.4 (10.0-20.0); CALCIUM 8.6 MG/DL (8.5-10.1); CHLORIDE 107 MMOL/L (99-107); CHOL/HDL RATIO 2.8 (0.00-4.99); CHOLESTEROL 135 MG/DL (0-200); CREATININE 1.09 MG/DL (0.40-0.90); GLUCOSE 90 MG/DL (70-104); HDL CHOLESTEROL 49 MG/DL (35-60); LDL CHOLESTEROL 61 MG/DL (50-100); MAGNESIUM 1.9 MG/DL (1.5-2.4); POTASSIUM 3.4 MMOL/L (3.5-5.1); SODIUM 146 MMOL/L (135-145); TOTAL CARBON DIOXIDE 30.4 MMOL/L (24-32); TOTAL PROTEIN 6.7 G/DL (6.4-8.2); TRIGLYCERIDES 121 MG/DL (20-135); eCRCL 41 ML/MIN; eGFR 49 ML/MIN
[2024-10-19] MEDS: clopidogrel 75mg tablet PO SCH (08:40)
[2024-10-19] MEDS: metoprolol succinate 25mg (24-HOUR) SR. Tablet PO SCH (08:40)
[2024-10-19] MEDS: docusate sod 100mg capsule PO SCH (08:40)
[2024-10-19] MEDS: pregabalin 25mg capsule PO SCH (08:40)
[2024-10-19] MEDS: potassium Cl 20 mEq SR tablet PO PRN (08:40)
[2024-10-19] MEDS: atorvastatin 20mg tablet PO SCH (08:41)
[2024-10-19] MEDS: cholecalciferol (vitamin D3) 1,000 unit (25mcg) tablet PO SCH (08:41)
[2024-10-19] MEDS: K and/or MAG REPLACEMENT MC SCH (08:42)
[2024-10-19] MEDS: duloxetine 30mg CAPSULE.DR PO SCH (08:42)
[2024-10-19] MEDS: MULTIVIT-MIN/FERROUS GLUCONATE 9 MG/15 ML LIQUID PO SCH (09:07)
[2024-10-19] MEDS: levoTHYROXINE 75mcg tablet PO SCH (09:08)
--- NOTE | 2024-10-19 17:31 | PROGRESS NOTE- Residence ---
Progress Note - Resident Providers to CC Resident Creating Document: SRIRAM CASILLAS RES ~ Antibiotic Timeout Antibiotic Ordered?: No Subjective Patient seen and examined at bedside. No acute overnight events noted. States she has been having syncopal episodes for the past three weeks without any prodromal symptoms. Mostly the episodes happen while she is walking. Objective Vital Signs Date Time Temp Pulse Resp B/P (MAP) Pulse Ox O2 Delivery O2 Flow Rate FiO2 10/19/24 16:22 55 13 149/76 (100) 96 0 10/19/24 11:00 98.1 Result Diagram: 10/19/24 0256 10/19/24 0256 General: Alert and oriented x4, well-appearing, well-nourished, no acute distress HEENT: Normocephalic, atraumatic, no visible or palpable masses or depression, extraocular movements intact, PERRLA, no scleral icterus, neck is supple and nontender, mucous membranes moist Cardiovascular: Regular rate and rhythm, heard 1st heart sound 2nd heart sound. Tran systolic murmur of grade 3/6 in mitral area, nonradiating to axilla. Ejection systolic murmur of grade 3/6 in aortic area & pulmonary area, radiating to carotid. Respiratory system: Clear to auscultation bilaterally, normal work of breathing Gastrointestinal system:: Soft, nontender, no palpable masses, normal bowel sounds Back: Spine is without deformity or tenderness, no CVA tenderness Extremities: Full range of motion, no acute deformity, peripheral pulses intact, no cyanosis or edema Musculoskeletal: Normal gait, normal tone Neurologic: No focal neurological deficits. Cranial nerves 2-12 are intact, reflexes normal Psychiatric: Alert and oriented x4, judgment and insight normal, normal mood and affect Skin: Good turgor, no rashes Coagulation Studies Laboratory Tests Test 10/18/24 20:22 Prothrombin Time 10.6 SECONDS (9.0-12.0) INR International Normalized Ratio 1.0 INR Activated Partial Thromboplast Time 29 SECONDS (22-32) Coagulation Comments Assessment Assessment Plan Plan Syncope likely secondary to Aortic stenosis Heart rate is normal. Blood pressure is initially as high as 160s & trended down to 120 EKG- no segment elevation Troponins are normal ProBNP is elevated mildly 410 Ordered echocardiogram Consult homemaking rehabilitation consultant lead sharepoint developer(as her lead sharepoint developer Dr. micky busby is out of town) in the a.m. for TAVR evaluation Ordered CT head &carotid Doppler Patient is with tried of classic aortic stenosis symptoms-angina, syncope, dyspnea, very active symptoms and may need evaluation for TAVR. On metoprolol 25 mg and 0.4 mg sublingual nitroglycerin PRN for chest pain. 10/19/2024 Awaiting echo final report, preliminary result: Trileaflet AV is moderately stenotic. BARBI is measured at 1.08 cmsq. Peak / mean gradients of 46 / 27 mmHG. Peak velocity is measured at 3.40 m/sec. Mild insufficiency. We will consult Cardiology in a.m., she will need to follow up with Cardiology outpatient for TAVR evaluation Type 1 diabetes mellitus A1c 6.8 Blood glucose is 124, 83 On CGM & insulin pump Had a long discussion with the patient about starting the hospital insulin protocol and her home insulin pump needs to be hold but patient denied the in- hospital insulin protocol and she wants to continue the insulin pump despite we clearly explained her about possible consequences. EUGENE likely secondary to dehydration/prerenal etiology Serum creatinine is mildly elevated and we will continue to monitor CMP CAD status post stenting and CABG We are continuing home medications of aspirin 81 mg, clopidogrel 75 mg, rosuvastatin 40 mg Hypothyroidism TSH 6.15. Continue levothyroxine 75 mcg COPD Not in acute exacerbation Hypertension Continuing home medications of Lasix 40 mg p.o. daily, lisinopril 5 mg Blood trended down to 120s from 160. Hyperlipidemia Ordered lipid panel and follow up with the results On rosuvastatin 40 mg p.o. daily Varicose veins in the leg Outpatient follow up with Dr. Rivero Peripheral neuropathy Continuing home medications of Pregabalin 50 mg p.o. daily , duloxetine 120, On centrum 15 mL p.o. daily Code status: Full code Diet: Heart healthy diet DVT prophylaxis: Heparin PT: Ordered Prognosis: Guarded Date of Service: Oct 19, 2024 Billing Provider: CÉSAR ASIF MD Common Visit Codes: [id number] INP/OBS CARE(HIGH) SRIRAM CASILLAS, RES Oct 19, 2024 17:31 ÉCSAR ASIF MD Oct 27, 2024 07:26
--- NOTE | 2024-10-19 18:45 | CARDIOLOGY REPORT ---
APPROVED REPORT EXAM: Comprehensive 2D, Doppler, and color-flow Echocardiogram. Patient Location: ER RM 7 Blood Pressure: 159/77 mmHg Heart Rate: 55 bpm Indications Chest Pain Shortness of Breath ProBNP: 410 HX of Coronary Artery Disease CABG x 2 (2000) Stents x 3 (1999) Diabetes CHAINMAN: Cherelle Cox MD No Previous ECHO available 2D Dimensions LA Diam4.1 cm IVSd 0.9 (0.7-1.1cm) LVDd 5.2 cm PWd 1.1 (0.7-1.1cm) IVSs 1.7 (0.8-1.2cm) LVDs 3.4 (2.5-4.0cm) PWs 1.3 (0.8-1.2cm) LVOT Diameter 1.88 (1.8-2.4cm) LVEF(%) 64.2 (>50%) Ao Asc Diam.2.67 cm IVC 14.18 mmFS (%) 35.3 % SV 83.2 ml CO 5.0 L/min M-Mode Dimensions Left Atrium(MM) 4.08 (2.5-4.0cm) Aortic Root 2.40 (2.2-3.7cm) Aortic Cusp Exc 0.99 (1.5-2.0cm) MV EPSS 1.0 (<0.5cm) Aortic Valve AoV Peak Anup. 340.3 cm/s AoV VTI 86.8 cm AO Peak GR. 46.3 mmHg AO Mean GR. 27 mmHg LVOT VTI 33.85 cm LVOT Peak Anup. 116.0 cm/s BARBI(VTI)/BSA 1.08 cm2/m2 BARBI (VTI) 1.08 cm2 AI P 1/2 Time 632 ms Mitral Valve MV E Velocity 124.3 cm/s MV Peak Gr. 12 mmHg MV DECEL TIME 236 ms MV A Velocity 78.8 cm/s MV PHT 80 ms E/A Ratio 1.6 MVA (PHT) 2.75 cm2 MV MHol431.2 cm/s TDI Lateral E' P. V7.50 cm/s E/Lateral E' 16.6 Tricuspid Valve TR P. Velocity 283 cm/s RAP ESTIMATE 10 mmHg TR Peak Gr. 32 mmHg RVSP 42 mmHg LEFT VENTRICLE Normal LV size and wall thickness. Overall systolic function is normal. LVEF is 60-65%. RIGHT VENTRICLE Right ventricle is mildly dilated with adequate function. Elevated right heart pressures as noted abo ve. ATRIA Left atrium is mildly dilated. AORTIC VALVE Trileaflet AV is moderately stenotic. BARBI is measured at 1.08 cmsq. Peak / mean gradients of 46 / 27 mmHG. Peak velocity is measured at 3.40 m/sec. Mild insufficiency. MITRAL VALVE Mitral valve leaflets are mildly thickened with mild annular calcification. No stenosis. Moderate reg urgitation. TRICUSPID VALVE The tricuspid valve is normal in structure with trace regurgitation. PULMONIC VALVE Pulmonic valve is grossly normal in structure with physiologic insufficienicy. GREAT VESSELS The aortic root is normal in size. The ascending aorta is normal in size. The IVC is normal in size a nd collapses >50% with inspiration. PERICARDIUM Pacemaker wire in right heart.Normal pericardium. No effusion. Other Information Study Quality: Adequate Conclusion Normal LV size and wall thickness. Overall systolic function is normal. LVEF is 60-65%. Right ventricle is mildly dilated with adequate function. Elevated right heart pressures with an RVS P of 42 mmHg. Left atrium is mildly dilated. Trileaflet AV is moderately stenotic. BARBI is measured at 1.08 cmsq. Peak / mean gradients of 46 / 2 7 mmHG. Peak velocity is measured at 3.40 m/sec. Mild insufficiency. Mitral valve leaflets are mildly thickened with mild annular calcification. No stenosis. Moderate r egurgitation. The tricuspid valve is normal in structure with trace regurgitation. Pulmonic valve is grossly normal in structure with physiologic insufficienicy. Pacemaker wire in right heart.Normal pericardium. No effusion.
[2024-10-19 23:30] VITALS: BP 145/69; PULSE 65; RESP 16; TEMP 97.4; O2SAT 97
[2024-10-20 02:00] VITALS: BP 115/76; PULSE 59; RESP 16; TEMP 98; O2SAT 97
[2024-10-20 06:00] VITALS: BP 125/51; PULSE 53; RESP 18; TEMP 97.1; O2SAT 97
[2024-10-20 07:59] LABS: BASOPHILS # (AUTO) 0.1 X10'3 (0-0.2); BASOPHILS % (AUTO) 0.8 % (0-1); EOSINOPHILS # (AUTO) 0.6 X10'3 (0-0.9); EOSINOPHILS % (AUTO) 5.3 % (0-6); HEMATOCRIT 36.8 % (35.0-45.0); HEMOGLOBIN 12.1 g/dl (12.0-16.0); LYMPHOCYTES # (AUTO) 2.9 X10'3 (1.1-4.8); LYMPHOCYTES % (AUTO) 27.4 % (21-51); MEAN CORPUSCULAR HGB CONC 32.8 g/dL (33.0-36.5); MEAN CORPUSCULAR VOLUME 79.2 FL (78-98); MEAN PLATELET VOLUME 8.2 FL (7.4-10.4); MONOCYTES # (AUTO) 0.7 X10'3 (0-0.9); MONOCYTES % (AUTO) 7.1 % (2-12); NEUTROPHILS # (AUTO) 6.2 X10'3 (1.8-7.7); NEUTROPHILS % (AUTO) 59.4 % (42-75); PLATELET COUNT 232 X10'3 (140-440); RED BLOOD COUNT 4.65 X10'6 (4.20-5.60); RED CELL DISTRIBUTION WIDTH 16.5 % (11.5-14.5); WHITE BLOOD COUNT 10.5 X10'3 (4.5-11.0)
[2024-10-20 08:00] VITALS: BP_SYST 108; BP_SYST 113; BP_SYST 118; BP_DIAS 46; BP_DIAS 51; PULSE 58; PULSE 60; PULSE 67; RESP 18; O2SAT 97
[2024-10-20 08:25] LABS: ALANINE AMINOTRANSFERASE 17 U/L (12-78); ALBUMIN 2.9 G/DL (3.4-5.0); ALBUMIN/GLOBULIN RATIO 0.8 (1.1-1.5); ALKALINE PHOSPHATASE 68 IU/L (46-116); ANION GAP 7 (8-16); ASPARTATE AMINO TRANSFERASE 17 U/L (10-37); BILIRUBIN,TOTAL 0.3 MG/DL (0.1-1.0); BLOOD UREA NITROGEN 22 MG/DL (7-18); BUN/CREATININE RATIO 19.6 (10.0-20.0); CALCIUM 8.7 MG/DL (8.5-10.1); CHLORIDE 107 MMOL/L (99-107); CREATININE 1.12 MG/DL (0.40-0.90); GLUCOSE 96 MG/DL (70-104); POTASSIUM 4.2 MMOL/L (3.5-5.1); SODIUM 145 MMOL/L (135-145); TOTAL CARBON DIOXIDE 30.7 MMOL/L (24-32); TOTAL PROTEIN 6.6 G/DL (6.4-8.2); eCRCL 40 ML/MIN; eGFR 48 ML/MIN
[2024-10-20] MEDS ORDERED: DULO60CA65 PO (10:40)
[2024-10-20 11:01] VITALS: BP 131/55; PULSE 61; RESP 19; O2SAT 98
--- NOTE | 2024-10-20 18:07 | DISCHARGE SUMMARY-Residence ---
Discharge Summary Providers to CC Resident Creating Document: SRIRAM CASILLAS RES ~ Discharge Summary Admission Diagnosis: SOB,CHEST PAIN Hospital Course DATE OF ADMISSION: 10/18/2024 DATE OF DISCHARGE: 10/20/2024 Hospital course same as mentioned discharge summary. Discharge Diagnosis\Comment: Syncope likely secondary to aortic stenosis, Polypharmacy could be contributing to the above Type 1 diabetes EUGENE likely secondary to dehydration/prerenal etiology Renal tubular stasis ruled out CAD status post stenting Hypothyroid COPD not in exacerbation Hypertension Hyperlipidemia Varicose veins Peripheral neuropathy Operations\Procedures: None Consultants: None Complications: None Condition on DC: Stable Changed Medications: Duloxetine HCl (Duloxetine HCl) 60 Mg Capsule.dr 60 MG PO DAILY, #30 CAP.SR (Changed from: 2 CAP) Continued Medications: Aspirin (Aspirin EC) 81 Mg Tablet.dr 1 TABLET PO DAILY, TABLET 3 Refills Candesartan Cilexetil (Candesartan Cilexetil) 16 Mg Tablet 1 TAB PO DAILY for 30 Days, #30 TAB 0 Refills Cholecalciferol (Vitamin D3) (Vitamin D3) 1,000 Unit Tablet 5 TAB PO DAILY, TAB Clopidogrel Bisulfate (Clopidogrel) 75 Mg Tablet 1 TAB PO DAILY Furosemide (Furosemide) 40 Mg Tablet 1 TAB PO DAILY Levothyroxine Sodium (Levothyroxine Sodium) 75 Mcg Tablet 1 TAB PO DAILY Potassium Chloride (Potassium Chloride) 20 Meq Tablet.er 1 TAB PO BID Pregabalin (Pregabalin) 50 Mg Capsule 1 CAP PO DAILY Rosuvastatin Calcium (Rosuvastatin Calcium) 40 Mg Tablet 1 TAB PO DAILY Discharge Summary: As per HPI: 69 yr female with past medical history of moderate aortic stenosis, type 1 diabetes mellitus, coronary artery disease status post three stents & two vessel bypass, COPD, hypertension, TIA varicose, peripheral neuropathy presented to the ER with a chief complaints syncope, shortness of breath, chest pain. She endorses that her echocardiogram done at [facility] last week while admitted for TIA showed worsening of the aortic stenosis . She do reports chest pain in the form of chest pressure with a retrosternal area, 4-5/10, multiple episodes, on and off, nonradiating aggravated with exertion and relieved with rest & not associated with nausea, diaphoresis, palpitations. She complained of shortness of breathe, more from last week, class three NYHA, aggravated with walking for 50 ft distance and are not associated with orthopnea and PND. She reports two syncopal episodes in the form of block out in a month. 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 Julio Cesar busby for possible aortic valve replacement but he is out of town and she consulted her primary care provider recommended her to visit ER as PCP thinks that it is not safe for her to be in home without any help. She reports that she lost her vision in left eye while she was undergoing cervical neck fusion surgery. She denied fever, cough, wh eeze, abdominal pain, abdominal distention, swelling of legs, decreased urine output, bleeding manifestations, rash, headache, vertigo, weakness of limbs, slurring of speech, deviation of angle of mouth, seizure, drooping of eyelids. Discussed code status with the patient & the patient wants to be full code Hospital course: On further evaluation heart rate was normal. Blood pressure initially high 160 and later trended down to 120. EKG showed no ST/T-wave changes. Troponins within normal limits. BNP was 410. CT head negative for acute intracranial changes. Echo was done which showed Trileaflet AV is moderately stenotic. BARBI is measured at 1.08 cmsq. Peak / mean gradients of 46 / 27 mmHG. Peak velocity is measured at 3.40 m/sec. Mild insufficiency. Vascular ultrasound of the carotids was ordered but she said that she had it done at Dr. Cox's office just two weeks ago and hence was canceled. Syncope workup was negative, no arrhythmias noted on telemetry. CT head negative. Echo showed no motion wall abnormalities. We also talked to her in detail about regulating her glucose control as she is a type 1 diabetic on insulin, we also discussed that hypoglycemia could also be a trigger. Recommended that she follows up with shellfish processing laborer outpatient regarding aortic stenosis and the possibility of intervention TAVR. Her hospital course is uncomplicated she is hemodynamically stable on the day of discharge and her physical exam is as follows: General: Alert and oriented x4, well-appearing, well-nourished, no acute distress HEENT: Normocephalic, atraumatic, no visible or palpable masses or depression, extraocular movements intact, PERRLA, no scleral icterus, neck is supple and nontender, mucous membranes moist Cardiovascular: Regular rate and rhythm, heard 1st heart sound 2nd heart sound. Tran systolic murmur of grade 3/6 in mitral area, nonradiating to axilla. Ejection systolic murmur of grade 3/6 in aortic area & pulmonary area, radiating to carotid. Respiratory system: Clear to auscultation bilaterally, normal work of breathing Gastrointestinal system:: Soft, nontender, no palpable masses, normal bowel sounds Back: Spine is without deformity or tenderness, no CVA tenderness Extremities: Full range of motion, no acute deformity, peripheral pulses intact, no cyanosis or edema Musculoskeletal: Normal gait, normal tone Neurologic: No focal neurological deficits. Cranial nerves 2-12 are intact, reflexes normal Psychiatric: Alert and oriented x4, judgment and insight normal, normal mood and affect Skin: Good turgor, no rashes Discharge medications can be found above. Patient is being discharged with the following advice: Follow up with PCP within a week, your syncope work up has been negative so far. It is recommended that you read the side effects of all your medications and discuss with your PCP, we have decreased your duloxetine to 60 PO daily as they could be contributing to your syncopal episodes. Strict fall precautions to be maintained, Hydrate yourself well. Your Aortic valve shows moderate insufficiency, this could be contributing to your syncope as well, hence it is recommended that you discuss the above results with your shellfish processing laborer and discuss about further management and possibility of TAVR. If condition worsens call 911 or go to the nearest ER immediately. Laboratory Tests Test 10/18/24 18:18 10/18/24 20:13 10/18/24 20:22 10/18/24 21:51 Urine Specimen Description Cln catch midstream Urine Color Yellow Urine Clarity Clear Urine pH 6.0 Urine Specific [place] 1.025 Urine Protein Trace mg/dl Urine Glucose (UA) Negative mg/dl Urine Ketones Negative mg/dl Urine Occult Blood Negative Urine Nitrite Negative Urine Bilirubin Negative Urine Urobilinogen 0.2 E.U/dL Urine Leukocyte Esterase Negative Urine RBC 0-2 /HPF Urine WBC 0-4 /HPF Urine Squamous Epithelial Cells Moderate /LPF Urine Bacteria Few /HPF Urine Mucus Few /LPF Urine Culture Indicated Not ind Volume Urine Centrifuged 10 ml Urine Comment Glucometer 83 mg/dl 145 mg/dl Prothrombin Time 10.6 SECONDS INR International Normalized Ratio 1.0 INR Activated Partial Thromboplast Time 29 SECONDS Coagulation Comments Test 10/19/24 02:56 6/12/25 02:59 10/19/24 18:51 10/20/24 07:35 White Blood Count 10.4 X10'3 10.5 X10'3 Red Blood Count 4.58 X10'6 4.65 X10'6 Hemoglobin 11.9 g/dl 12.1 g/dl Hematocrit 36.3 % 36.8 % Mean Corpuscular Volume 79.4 FL 79.2 FL Mean Corpuscular Hemoglobin 26.1 PG 26.0 PG Mean Corpuscular Hemoglobin Concent 32.9 g/dL 32.8 g/dL Red Cell Distribution Width 16.0 % 16.5 % Platelet Count 225 X10'3 232 X10'3 Mean Platelet Volume 8.0 FL 8.2 FL Neutrophils (%) (Auto) 56.7 % 59.4 % Lymphocytes (%) (Auto) 30.5 % 27.4 % Monocytes (%) (Auto) 7.1 % 7.1 % Eosinophils (%) (Auto) 4.8 % 5.3 % Basophils (%) (Auto) 0.9 % 0.8 % Neutrophils # (Auto) 5.9 X10'3 6.2 X10'3 Lymphocytes # (Auto) 3.2 X10'3 2.9 X10'3 Monocytes # (Auto) 0.7 X10'3 0.7 X10'3 Eosinophils # (Auto) 0.5 X10'3 0.6 X10'3 Basophils # (Auto) 0.1 X10'3 0.1 X10'3 CBC Comment Sodium Level 146 MMOL/L 145 MMOL/L Potassium Level 3.4 MMOL/L 4.2 MMOL/L Chloride Level 107 MMOL/L 107 MMOL/L Carbon Dioxide Level 30.4 MMOL/L 30.7 MMOL/L Anion Gap 9 7 Blood Urea Nitrogen 19 MG/DL 22 MG/DL Creatinine 1.09 MG/DL 1.12 MG/DL Estimated GFR/1.73 m2 49 ML/MIN 48 ML/MIN BUN/Creatinine Ratio 17.4 19.6 Glucose Level 90 MG/DL 96 MG/DL Calcium Level 8.6 MG/DL 8.7 MG/DL Magnesium Level 1.9 MG/DL 2.0 MG/DL Total Bilirubin 0.4 MG/DL 0.3 MG/DL Aspartate Amino Transf (AST/SGOT) 18 U/L 17 U/L Alanine Aminotransferase (ALT/SGPT) 19 U/L 17 U/L Alkaline Phosphatase 68 IU/L 68 IU/L Total Protein 6.7 G/DL 6.6 G/DL Albumin 3.0 G/DL 2.9 G/DL Globulin 3.7 G/DL 3.7 G/DL Albumin/Globulin Ratio 0.8 0.8 Triglycerides Level 121 MG/DL Cholesterol Level 135 MG/DL LDL Cholesterol 61 MG/DL HDL Cholesterol 49 MG/DL Cholesterol/HDL Ratio 2.8 Chemistry Comments Glucometer 96 mg/dl 207 mg/dl *Problems/Diagnosis: (1) Syncope Status: Acute (2) Aortic stenosis Status: Acute Total Time Spent on D/C: > 30 Minutes Date of Service: Oct 20, 2024 Billing Provider: FRANCISCO JAVIER BARTH MD Common Visit Codes: 40004-CQX/OBS DISCH DAY >30min Problem Qualifiers (1) Syncope: Syncope type: unspecified Qualified Codes: R55 - Syncope and collapse (2) Aortic stenosis: Cardiac valve disease etiology: etiology unspecified Qualified Codes: I35.0 - Nonrheumatic aortic (valve) stenosis SRIRAM CASILLAS, VITOR Oct 20, 2024 18:07 FRANCISCO JAVIER BARTH MD Oct 20, 2024 18:59
== END 2024-10-20 13:14 | disposition home or self-care (01) | DRG 307 ==
LOC: ER 13:30 → ED HOLD 19:44 → PCU 3S 10-19 23:15
PROVIDERS: ADMIT Internal Medicine Critical Care Medicine; ATTEND Internal Medicine Critical Care Medicine
DX: I35.0 Nonrheumatic aortic (valve) stenosis (principal); N17.9 Acute kidney failure, unspecified; I25.10 Atherosclerotic heart disease of native coronary artery without angina pectoris; J44.9 Chronic obstructive pulmonary disease, unspecified; E10.42 Type 1 diabetes mellitus with diabetic polyneuropathy; I10 Essential (primary) hypertension; G43.909 Migraine, unspecified, not intractable, without status migrainosus; E86.0 Dehydration; I83.90 Asymptomatic varicose veins of unspecified lower extremity; G35 Multiple sclerosis; E78.00 Pure hypercholesterolemia, unspecified; I25.2 Old myocardial infarction; Z95.0 Presence of cardiac pacemaker; Z95.1 Presence of aortocoronary bypass graft; Z87.891 Personal history of nicotine dependence; Z86.73 Personal history of transient ischemic attack (TIA), and cerebral infarction without residual deficits; Z88.1 Allergy status to other antibiotic agents; Z79.82 Long term (current) use of aspirin; Z79.01 Long term (current) use of anticoagulants; Z79.899 Other long term (current) drug therapy; Z90.710 Acquired absence of both cervix and uterus
CPT/HCPCS: 36415; 70450; 71045; 80048; 80053; 80061; 81001; 82948; 83036; 83735; 83880; 84443; 84484; 85025; 85610; 85730; 87081; 93005; 93306; 97116; 97161; 97530; 99285; A4615; G0378; J1644